=== PATIENT | female | born 1995 | race Caucasian/White ===

== ENCOUNTER → 2016-10-11 | Outpatient (CLI) | payer SELFPAY ==
--- NOTE | 2016-10-11 13:14 | Diagnostic Imaging Report ---
INDICATION: Pelvic pain. Pelvic sonogram: Transabdominal and endovaginal pelvic sonogram is performed. FINDINGS: The uterus measures 5.3 x 4.2 x 3.9 cm. Endometrial stripe is 3 mm. The myometrium and endometrium appear normal. The ovaries appear normal. There is a trace amount of free fluid in the cul-de-sac and around the left ovary. IMPRESSION: Trace amount of free fluid. Pelvic sonogram is otherwise unremarkable. Dictated by: Dictated on workstation # [id number]
== END ==
LOC: RAD 12:09
PROVIDERS: ATTEND Nurse Practitioner Family
DX: N83.00 Follicular cyst of ovary, unspecified side (principal); R10.2 Pelvic and perineal pain; N92.6 Irregular menstruation, unspecified
CPT/HCPCS: 76830; 76856